=== PATIENT | female | born 1970 | race Caucasian/White ===

== ENCOUNTER 2021-06-11 17:48 | Emergency (ER) | payer OTHER, SELFPAY ==
[2021-06-11 18:00] VITALS: BP 124/79; PULSE 61; RESP 18; TEMP 36.6; O2SAT 99
--- NOTE | 2021-06-11 18:22 | ED.URI ---
HPI - URI/Sore Throat General Chief Complaint: Upper Respiratory Infection Stated Complaint: Sinus,Headache Time Seen by Provider: 06/11/21 18:13 Source: patient and RN notes reviewed Mode of arrival: ambulatory Limitations: no limitations History of Present Illness HPI Narrative: 50-year-old female presents with concern for rhinorrhea, nasal congestion, scratchy throat, sinus headache, bilateral ear pressure. Reports symptoms started today. She denies shortness of breath, cough, nausea, vomiting, diarrhea. She reports she uses Zyrtec and Flonase. MD elicited complaint: rhinorrhea Related Data Home Medications Medication Instructions Recorded Confirmed ezetimibe 10 mg PO DAILY 06/11/21 06/11/21 pravastatin 40 mg PO DAILY 06/11/21 06/11/21 Allergies Allergy/AdvReac Type Severity Reaction Status Date / Time No Known Allergies Allergy Unknown Verified 06/11/21 18:05 Review of Systems Review of Systems: CONSTITUTIONAL: Denies malaise, chills, sweats, or fever. EYES: Denies visual changes, redness, or discharge. ENT: Reports rhinorrhea, congestion, sinus pressure, ear pressure, scratchy throat CARDIOVASCULAR: Denies chest pain, palpitations, or edema. RESPIRATORY: Denies cough or dyspnea. GASTROINTESTINAL: Denies abdominal pain, nausea, vomiting, diarrhea SKIN: Denies rash or itching. MUSCULOSKELETAL: Denies myalgia. NEUROLOGIC: Denies headache. All systems reviewed & are unremarkable except as noted in HPI and below PMFSH Comments At time of signature, agree with nursing past medical, surgical, social and family history. There is no relevant family history pertinent to the presenting complaint Exam Narrative: GENERAL: Well-appearing, well-nourished, and in no acute distress. HEAD: Normocephalic EYES: PERRLA, conjunctivae clear ENT: Nares clear, clear discharge. Mucous membranes moist. TM pearly hager with sharp light reflex bilaterally; no tragal tenderness. Oropharynx not erythematous without lesions. Tonsils not enlarged and without exudate, no drooling, no hoarseness, no trismus, uvula midline. NECK: Supple. No lymphadenopathy CHEST: Clear to auscultation, breath sounds equal. No wheezing, rhonchi, rales, or stridor. No respiratory distress, speaks in full sentences. HEART: Regular rate and rhythm. No murmur heard. SKIN: Warm, dry, no rash. NEURO: Alert and oriented x3. PSYCH: Normal mood and affect Course Course Emergency Course: Patient is aware of diagnosis, understands and agrees to treatment plan. Anticipatory guidance given. Patient agrees to follow-up as directed and is aware of reasons to seek care at the emergency department. Portions of this record may have been created with voice recognition software Vital Signs Vital signs: Vital Signs Temperature 97.9 F 06/11/21 18:00 Pulse Rate 61 06/11/21 18:00 Respiratory Rate 18 06/11/21 18:00 Blood Pressure 124/79 06/11/21 18:00 Pulse Oximetry 99 06/11/21 18:00 Temperature 97.9 F 06/11/21 18:00 Pulse Rate 61 06/11/21 18:00 Respiratory Rate 18 06/11/21 18:00 Blood Pressure 124/79 06/11/21 18:00 Pulse Oximetry 99 06/11/21 18:00 Reviewed. MDM - URI/Sore Throat MDM Narrative Medical decision making narrative: Differential diagnosis considered: Krishnamurthy virus, strep pharyngitis, allergic rhinitis, upper respiratory tract infection, sinusitis, rhinosinusitis, nasopharyngitis. viral pharyngitis, otitis media, otitis externa, pneumonia, bronchitis, viral cough syndrome, viral syndrome, and influenza. Exam findings show no acute concerns or changes; patient is non-toxic appearing and is in no distress. Patient is appropriate for outpatient treatment and follow-up. Lab Data Labs: Lab Results 06/11/21 Range/Units 18:03 POC SARS CoV-2 Ag Negative (Negative) Covid rapid test negative, pending PCR confirmation Critical Care Time Critical Care Time Critical Care Time: No Discharge Plan Discharge Clinical Impress
[2021-06-12 18:05] LABS: SARS-CoV-2 RNA PCR Negative
== END 2021-06-11 18:31 | disposition home or self-care (01) ==
PROVIDERS: Emergency Provider Nurse Practitioner; PCP Nurse Practitioner Adult Health
DX: J06.9 Acute upper respiratory infection, unspecified (principal); Z20.822 Contact with and (suspected) exposure to COVID-19
CPT/HCPCS: 87426; 99213; C9803; G0463; U0003; U0005

== ENCOUNTER 2023-06-09 08:42 | Emergency (ER) | payer OTHER, SELFPAY ==
[2023-06-09 09:10] VITALS: BP 128/71; PULSE 63; RESP 16; TEMP 36.6; O2SAT 99
--- NOTE | 2023-06-09 09:37 | ED.URI ---
HPI - URI/Sore Throat General Chief Complaint: Upper Respiratory Infection Stated Complaint: sorethroat,bilateral ear discomfort Source: patient and RN notes reviewed Mode of arrival: ambulatory Limitations: no limitations History of Present Illness HPI Narrative: 52-year-old female presented for complaint of body aches, nasal congestion, head pressure, bilateral ear pain, and sore throat. Onset yesterday. States she often wakes with body aches due to history of rheumatoid arthritis, the upper respiratory symptoms gave her cause for concern. She tested negative for COVID at home today. She is requesting influenza and strep testing. She denies shortness of breath, wheezing, nausea, vomiting, diarrhea, fevers or chills. Patient takes daily Zyrtec, she has added Flonase when symptoms started. MD elicited complaint: cough Related Data Home Medications Medication Instructions Recorded Confirmed ezetimibe 10 mg tablet 10 mg PO DAILY 06/11/21 06/11/21 pravastatin 40 mg tablet 40 mg PO DAILY 06/11/21 06/11/21 Allergies Allergy/AdvReac Type Severity Reaction Status Date / Time No Known Allergies Allergy Unknown Verified 06/11/21 18:05 Review of Systems Review of Systems: CONSTITUTIONAL: Denies malaise, chills, sweats, fever EYES: Denies visual changes, redness, or discharge ENT: Reports rhinorrhea, congestion, sinus pain, otalgia, sore throat CARDIOVASCULAR: Denies chest pain, palpitations, edema RESPIRATORY: Reports cough, post nasal drainage. Denies dyspnea GASTROINTESTINAL: Denies abdominal pain, nausea, vomiting, diarrhea SKIN: Denies rash or itching MUSCULOSKELETAL: Endorses myalgia NEUROLOGIC: Denies headache [facility] Past Medical History Medical History (Updated 06/09/23 @ 09:47 by Sabina Eid, [employer]) Rheumatoid arthritis Exam Narrative: GENERAL: well-appearing, nontoxic no acute distress. HEAD: Normocephalic EYES: PERRLA, conjunctivae clear ENT: Mucous membranes moist. TM pearly hager with dull light reflex bilaterally; no tragal tenderness. Oropharynx mildly erythematous without lesions or exudate, no drooling, no hoarseness, no trismus, uvula midline. No tripod positioning, muffled voice, soft palate or pharyngeal wall bulging NECK: Supple. No lymphadenopathy CHEST: Clear to auscultation, breath sounds equal. No wheezing, rhonchi, rales, or stridor. No respiratory distress, speaks in full sentences. HEART: Regular rate and rhythm. No murmur heard. SKIN: Warm, dry, no rash. NEURO: Alert and oriented x3. PSYCH: Normal mood and affect Course Course Emergency Course: Patient is aware of diagnosis, understands and agrees to treatment plan. Anticipatory guidance given. Patient agrees to follow-up as directed and is aware of reasons to seek care at the emergency department. Portions of this record may have been created with voice recognition software Level of Care: Express Care Visit Vital Signs Vital signs: Vital Signs Temperature 97.9 F 06/09/23 09:10 Pulse Rate 63 06/09/23 09:10 Respiratory Rate 16 06/09/23 09:10 Blood Pressure 128/71 06/09/23 09:10 Pulse Oximetry 99 06/09/23 09:10 Oxygen Delivery Room Air 06/09/23 09:10 Temperature 97.9 F 06/09/23 09:10 Pulse Rate 63 06/09/23 09:10 Respiratory Rate 16 06/09/23 09:10 Blood Pressure 128/71 06/09/23 09:10 Pulse Oximetry 99 06/09/23 09:10 Oxygen Delivery Room Air 06/09/23 09:10 reviewed MDM - URI/Sore Throat MDM Narrative Medical decision making narrative: Result negative strep and flu reviewed with patient. Patient declined COVID test at this time, advised retesting at home for COVID. Discussed physical exam findings. Advised supportive measures and signs/symptoms to go to the ER. Pt is appropriate for outpt treatment and f/u. Differential Diagnosis Differential diagnosis: Likely upper respiratory infection, otitis media, sinusitis, viral infection, bronchitis, influenza and pharyng
== END 2023-06-09 09:50 | disposition home or self-care (01) ==
PROVIDERS: Emergency Provider Nurse Practitioner Family
DX: B34.9 Viral infection, unspecified (principal); M06.9 Rheumatoid arthritis, unspecified
CPT/HCPCS: 87081; 87804; 87880; 99213; G0463